=== PATIENT | female | born 1985 | race African-American/Black ===

== ENCOUNTER 2017-09-11 11:23 | Emergency (ER) | payer OTHER ==
[~2017-09-11] VITALS: Ht 162.6 cm; Wt 63.5 kg
[~2017-09-11 11:23] MED LIST: BACTRIM DS TAB1 EACH PO; ECONAZOLE 1% CR30 G1 TP; FAMOTIDINE PO; HYDROXYZINE HCL25 M1 PO; NORCO 5-325 TA1 EACH PO; PENICILLIN VK500 M1 PO; PREDNISONE50 MG PO
[2017-09-11] MEDS ORDERED: NORCO 5-325 TA1 EACH PO (11:42)
[2017-09-11 11:55] LABS: URINE BILIRUBIN NEGATIVE (Negative); URINE BLOOD NEGATIVE (Negative); URINE CLARITY CLEAR; URINE COLOR YELLOW; URINE GLUCOSE-RANDOM* NEGATIVE (Negative); URINE KETONES NEGATIVE (Negative); URINE LEUKOCYTES NEGATIVE (Negative); URINE NITRITE NEGATIVE (Negative); URINE PROTEIN (DIPSTICK) NEGATIVE (Negative); URINE SPECIFIC GRAVITY 1.015 (1.005-1.035); URINE UROBILINOGEN 0.2 E.U./dl (0.2-1.0)
== END 2017-09-11 12:21 | disposition home or self-care (01) ==
LOC: ER 11:23
PROVIDERS: Emergency Medicine
DX: M54.5 Low back pain (principal); G43.909 Migraine, unspecified, not intractable, without status migrainosus; F17.210 Nicotine dependence, cigarettes, uncomplicated

== ENCOUNTER 2020-05-03 19:51 | Emergency (ER) | payer OTHER ==
[~2020-05-03] VITALS: Ht 162.6 cm; Wt 61.2 kg
[2020-05-03 20:35] VITALS: BP 147/87
== END 2020-05-03 20:36 | disposition home or self-care (01) ==
LOC: ER 19:51
DX: S61.412A Laceration without foreign body of left hand, initial encounter (principal); F17.210 Nicotine dependence, cigarettes, uncomplicated; G43.909 Migraine, unspecified, not intractable, without status migrainosus; Z79.899 Other long term (current) drug therapy; W26.0XXA Contact with knife, initial encounter; Y93.89 Activity, other specified; Y92.89 Other specified places as the place of occurrence of the external cause; Y99.8 Other external cause status